=== PATIENT | male | born 1940 | race Caucasian/White ===

== ENCOUNTER → 2016-10-07 | Outpatient (CLI) | payer MEDICARE ==
[~2016-10-07] MED LIST: ASPI81 CHEW; LEVO88TA2 PO; SIMV80TA PO; VITA500015 PO; XANA0.5T PO
--- NOTE | 2016-10-07 10:39 | RADRPT ---
EXAM DATE/TIME: 10/07/2016 09:56 [place] COMPARISON: BA SWALLOW W/SPEECH PATHOLOGY, January 01, 2016, 0:00. INDICATIONS : Dyspahgia. FLUORO TIME: 2.9 minutes IMAGE COUNT: 2 CONTRAST: Dose as prescribed by speech pathologist. MEDICAL HISTORY : cancer tongue 14 years ago. Feeding tube.Dysphagia, Malignant neoplasm o f colon, HLD, Hypothyroidism, Kyphosis, PVC's, SURGICAL HISTORY : Colonoscopy, Bilateral inguinal hernia repair ENCOUNTER: Initial ACUITY: 1 day PAIN SCORE: 0/10 LOCATION: Esophagus. FINDINGS: A modified barium swallow was performed with speech pathology. Patient was given a variety of liquids to swallow. There is moderate deformity of the neck with the pyriforms directed horizontally that results in mode rate laryngeal penetration. For a full detailed report, see report by the speech pathologist. CONCLUSION: Moderate laryngeal penetration as described above. Maximiliano Medina MD FACR on October 07, 2016 at 10:33 Board Certified Radiologist. This report was verified electronically.
== END ==
LOC: HRAD 09:46
PROVIDERS: ATTEND Internal Medicine Gastroenterology
DX: R13.10 Dysphagia, unspecified (principal)
CPT/HCPCS: 74230; 92611; G8996; G8997; G8998

== ENCOUNTER 2017-05-03 13:31 | Emergency (ER) | payer MEDICARE ==
[~2017-05-03] VITALS: Ht 170.2 cm; Wt 70.0 kg
[2017-05-03 13:46] VITALS: BP 143/73; PULSE 91; RESP 16; TEMP 98.3; O2SAT 97
[2017-05-03] MEDS ORDERED: SIMV40TA PO (14:39)
[2017-05-03] MEDS ORDERED: ALPR0.5T3 PO (14:39)
[2017-05-03] MEDS ORDERED: CHOL5000 PO (14:39)
[2017-05-03] MEDS ORDERED: LEVO100T5 PO (14:39)
[2017-05-03] MEDS ORDERED: ASPI-516 CHEW (14:39)
[2017-05-03 14:48] LABS: AUTOMATED NEUTROPHIL # 2.6 TH/MM3 (1.8-7.7); EOSINOPHIL # 0.1 TH/MM3 (0-0.4); EOSINOPHIL % 1.8 % (0.0-4.0); HEMATOCRIT 38.1 % (39.0-51.0); HEMO FLAGS DIFF FINAL; LYMPH % 22.3 % (9.0-44.0); LYMPHOCYTE # 0.9 TH/MM3 (1.0-4.8); MEAN CELL VOLUME 88.8 FL (80.0-100.0); MEAN CORPUSCULAR HEMOGLOBIN 29.5 PG (27.0-34.0); MEAN CORPUSCULAR HGB CONC 33.3 % (32.0-36.0); MONO % 11.2 % (0.0-8.0); NEUT % 63.7 % (16.0-70.0); PLATELET COUNT 162 TH/MM3 (150-450); WHITE BLOOD COUNT 4.1 TH/MM3 (4.0-11.0)
--- NOTE | 2017-05-03 14:55 | PD ---
HPI Chief Complaint: ENT Complaint Time Seen by Provider: 14:40 Travel History International Travel<30 days: No Contact w/Intl Traveler<30days: No Traveled to known affect area: No History of Present Illness HPI 76 year old male here for evaluation of spitting up blood since this morning. He states after clearing his throat he spit up some blood-tinged fluid. 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 He also received tumor resection and radiation which resulted in dysphagia. Patient has PEG tube which he receives all feedings. He denies sore throat, change in voice, weight loss, fatigue or dizziness. PFSH Past Medical History Narrative Medical Significant for squamous cell carcinoma of the tongue and hypothyroidism. 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) Cardiovascular Problems: No Diabetes: No Endocrine: Yes Gastrointestinal Disorders: Yes (LOSING WEIGHT SWALLOWING PROBLEMS) Genitourinary: No Hepatitis: No Hiatal Hernia: No Immune Disorder: No Musculoskeletal: Yes (ARTHRITIS WORSE IN HANDS) Neurologic: No Psychiatric: No Reproductive: No Respiratory: No Thyroid Disease: Yes Influenza Vaccination: Yes Past Surgical History Abdominal Surgery: Yes (HEMA INGUINAL HERNIA X2) AICD: No Body Medical Devices: NONE Cardiac Surgery: No Ear Surgery: No Endocrine Surgery: No Eye Surgery: Yes (LEFT CATARACT EXTRACTION WITH LENS IMPLANT ) Genitourinary Surgery: No Gynecologic Surgery: No Joint Replacement: No Oral Surgery: Yes (right radical neck dissection due to squamous cell carcinoma ) Pacemaker: No Thoracic Surgery: No Other Surgery: Yes (SKIN CA AT BASE OF TONGUE - 2000) Social History Alcohol Use: No Tobacco Use: No Substance Use: No Allergies-Medications (Allergen,Severity, Reaction): Coded Allergies: No Known Allergies (Verified Adverse Reaction, Unknown, 05/03/17) Reported Meds & Prescriptions Reported Meds & Active Scripts Active Reported Simvastatin 40 Mg Tab 40 Mg PO HS Levothyroxine (Levothyroxine Sodium) 100 Mcg Tab 100 Mcg PO DAILY Vitamin D3 (Cholecalciferol) 5,000 Unit Cap 5,000 Units PO DAILY Aspirin 81 Mg Chew 81 Mg CHEW DAILY Alprazolam 0.5 Mg Tab 0.5 Mg PO HS Physical Exam Narrative GENERAL: Alert, well-appearing elderly male. SKIN: Focused skin assessment is Warm and dry. HEAD: Normocephalic. EYES: No scleral icterus. No injection or drainage. MOUTH: Small amount of blood tinged sputum noticed in the posterior oropharynx. NECK: Supple, trachea midline. No JVD or lymphadenopathy. CARDIOVASCULAR: Regular rate and rhythm without murmurs, gallops, or rubs. RESPIRATORY: Breath sounds equal bilaterally. No accessory muscle use. GASTROINTESTINAL: Abdomen soft, non-tender, nondistended. Data Data Last Documented VS Vital Signs Date Time Temp Pulse Resp B/P (MAP) Pulse Ox O2 Delivery O2 Flow Rate FiO2 05/03/17 13:46 98.3 91 16 143/73 (96) 97 Orders Orders Complete Blood Count With Diff (05/03/17 14:23) Labs Laboratory Tests Test 05/03/17 14:30 White Blood Count 4.1 TH/MM3 Red Blood Count 4.30 MIL/MM3 Hemoglobin 12.7 GM/DL Hematocrit 38.1 % Mean Corpuscular Volume 88.8 FL Mean Corpuscular Hemoglobin 29.5 PG Mean Corpuscular Hemoglobin Concent 33.3 % Red Cell Distribution Width 12.0 % Platelet Count 162 TH/MM3 Mean Platelet Volume 10.8 FL Neutrophils (%) (Auto) 63.7 % Lymphocytes (%) (Auto) 22.3 % Monocytes (%) (Auto) 11.2 % Eosinophils (%) (Auto) 1.8 % Basophils (%) (Auto) 1.0 % Neutrophils # (Auto) 2.6 TH/MM3 Lymphocytes # (Auto) 0.9 TH/MM3 Monocytes # (Auto) 0.5 TH/MM3 Eosinophils # (Auto) 0.1 TH/MM3 Basophils # (Auto) 0.0 TH/MM3 CBC Comment DIFF FINAL Differential Comment MDM Medical Decision Making Medical Screen Exam Complete: Yes Emergency Medical Condition: Yes Interpretation(s) CBC: Hemoglobin 12.7 Differential Diagnosis Bleeding from a neoplastic lesion of the esophagus, upper GI bleed, Narrative Course 76-year-old male with history of squamous cell carcinoma the tongue here for evaluation after he spit up some blood tinged sputum this morning. His exam is reassuring. He brought in a sample of what he was spitting up this morning is a very lightly blood-tinged clear sputum. Patient has follow-up appointment with his ENT doctor tomorrow morning. My attending physician also spoke with his PCP. Patient's blood work was reviewed his hemoglobin is 12.7. He is stable and ready for discharge. He has family agreed to plan Diagnosis Primary Impression: Blood-tinged sputum Referrals: Eloy Silverio MD Additional Instructions: Follow-up with your ENT physician tomorrow. If you developed new or worsening symptoms prior return to emergency department Disposition: 01 DISCHARGE HOME Condition: Stable Jaquelin Luz May 03, 2017 14:55
== END 2017-05-03 16:08 | disposition home or self-care (01) ==
LOC: PHEFT 13:31
DX: R04.2 Hemoptysis (principal); Z85.810 Personal history of malignant neoplasm of tongue
CPT/HCPCS: 85025; 99283

== ENCOUNTER 2017-05-12 17:24 | Emergency (ER) | payer MEDICARE ==
[~2017-05-12] VITALS: Ht 170.2 cm; Wt 70.0 kg
[~2017-05-12 17:24] MED LIST changes: +ALPR0.5T3 PO; +ASPI-516 CHEW; -ASPI81 CHEW; +CHOL5000 PO; +LEVO100T5 PO; -LEVO88TA2 PO; +SIMV40TA PO; -SIMV80TA PO; -VITA500015 PO; -XANA0.5T PO
[2017-05-12 17:37] VITALS: BP 135/64; PULSE 74; RESP 16; TEMP 98; O2SAT 100
[2017-05-12] MEDS ORDERED: SILVER NITR/POTASSIUM NITRATE APPLICATORS TOPICAL ONE (18:15)
--- NOTE | 2017-05-12 18:17 | PD ---
HPI Chief Complaint: Skin Problem Time Seen by Provider: 18:04 Travel History International Travel<30 days: No Contact w/Intl Traveler<30days: No Traveled to known affect area: No History of Present Illness HPI 77-year-old male who underwent an ED&C of left anterior scalp [facility], here for evaluation of bleeding. The procedure was performed at around noon. He has noticed that the bandages soaked with blood and there is a small amount of blood dripping down his face. He was on aspirin 81 mg daily, however he has not taken it today or yesterday. No other antiplatelets or anticoagulants. States he feels well otherwise. 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) Cardiovascular Problems: No Diabetes: No Endocrine: Yes Gastrointestinal Disorders: Yes (LOSING WEIGHT SWALLOWING PROBLEMS) Genitourinary: No Hepatitis: No Hiatal Hernia: No Hypertension: No Immune Disorder: No Medical other: No Musculoskeletal: Yes (ARTHRITIS WORSE IN HANDS) Neurologic: No Psychiatric: No Reproductive: No Respiratory: No Thyroid Disease: Yes Past Surgical History Abdominal Surgery: Yes (HEMA INGUINAL HERNIA X2) AICD: No Body Medical Devices: NONE Cardiac Surgery: No Ear Surgery: No Endocrine Surgery: No Eye Surgery: Yes (LEFT CATARACT EXTRACTION WITH LENS IMPLANT ) Genitourinary Surgery: No Gynecologic Surgery: No Joint Replacement: No Neurologic Surgery: No Oral Surgery: Yes (right radical neck dissection due to squamous cell carcinoma ) Pacemaker: No Thoracic Surgery: No Other Surgery: Yes (SKIN CA AT BASE OF TONGUE - 2000) Social History Alcohol Use: No Tobacco Use: No Substance Use: No Allergies-Medications (Allergen,Severity, Reaction): Coded Allergies: No Known Allergies (Verified Adverse Reaction, Unknown, 05/12/17) Reported Meds & Prescriptions Reported Meds & Active Scripts Active Reported Simvastatin 40 Mg Tab 40 Mg PO HS Levothyroxine (Levothyroxine Sodium) 100 Mcg Tab 100 Mcg PO DAILY Vitamin D3 (Cholecalciferol) 5,000 Unit Cap 5,000 Units PO DAILY Aspirin 81 Mg Chew 81 Mg CHEW DAILY Alprazolam 0.5 Mg Tab 0.5 Mg PO HS Review of Systems Except as stated in HPI: all other systems reviewed are Neg Physical Exam Narrative GENERAL: Well-developed, well-nourished, comfortable, no apparent distress. SKIN: Circular proximally 1 cm x 1 cm lesion on left anterior scalp of moderate depth with mild venous oozing. CARDIOVASCULAR: Regular rate and rhythm. RESPIRATORY: No accessory muscle use. NEUROLOGICAL: Awake and alert. No obvious cranial nerve deficits. Motor grossly within normal limits. Normal speech. PSYCHIATRIC: Appropriate mood and affect; insight and judgment normal. Data Data Last Documented VS Vital Signs Date Time Temp Pulse Resp B/P (MAP) Pulse Ox O2 Delivery O2 Flow Rate FiO2 05/12/17 17:37 98.0 74 16 135/64 (87) 100 Orders Orders Silver Nitrate Applicators (Silver Nitra (05/12/17 18:15) MDM Medical Decision Making Medical Screen Exam Complete: Yes Emergency Medical Condition: Yes Differential Diagnosis Postoperative venous bleeding Narrative Course Patient has a 1 cm x 1 cm circular wound on his left anterior scalp where squamous cell carcinoma was [facility] at [facility]. There is mild venous oozing. Bleeding was controlled with 2 silver nitrate sticks. Sterile dressing applied. The patient has a follow-up appointment with the administrative hearing officer tomorrow. He is stable for discharge home with further follow-up with them. He was advised on when to return to the emergency department. He verbalizes understanding and agreement with plan. Procedures Procedure Narrative Wound care: 2 silver nitrate sticks were used to control the venous bleeding from left anterior scalp wound. Sterile dressing applied. Tolerated well. No complications. Diagnosis Primary Impression: Postoperative hemorrhage of skin following dermatologic procedure Referrals: [facility] 1 day Additional Instructions: Follow-up with your administrative hearing officer tomorrow as scheduled. Return to the emergency department for worsening symptoms or any other concerns. Disposition: 01 DISCHARGE HOME Condition: Stable Rommel Andino MD May 12, 2017 18:17
== END 2017-05-12 18:33 | disposition home or self-care (01) ==
LOC: PHED 17:24
DX: L76.21 Postprocedural hemorrhage of skin and subcutaneous tissue following a dermatologic procedure (principal)
CPT/HCPCS: 12001; 99283

== ENCOUNTER 2017-05-15 18:07 | Emergency (ER) | payer MEDICARE ==
[~2017-05-15] VITALS: Ht 170.2 cm; Wt 67.0 kg
[2017-05-15 18:09] VITALS: BP 150/72; PULSE 90; RESP 16; TEMP 99; O2SAT 98
--- NOTE | 2017-05-15 18:55 | PD ---
HPI Chief Complaint: Blood Bank Laboratory Technologist Problem Time Seen by Provider: 18:55 Travel History International Travel<30 days: No Contact w/Intl Traveler<30days: No Traveled to known affect area: No History of Present Illness HPI 77-year-old male came to the emergency room with history of possible blood coming out of his G-tube. Patient has had this for 17 months. Says it has been functioning good but soft and non-when he put his feet in and then flushed he thought he saw some blood. He was not sure. He has appointment with his GI specialist Wednesday morning that he just wanted to get this checked out. Patient has history of esophageal cancer 18 years ago. He was seen in the emergency room 3 weeks ago for hemoptysis. Patient says although symptoms have resolved. Vital signs are stable. No history of pain. PFSH Past Medical History Narrative Medical List of his past medical, surgical, social and family history is reviewed from the nursing note. 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) Cardiovascular Problems: No Diabetes: No Endocrine: Yes Gastrointestinal Disorders: Yes (LOSING WEIGHT SWALLOWING PROBLEMS) Genitourinary: No Hepatitis: No Hiatal Hernia: No Hypertension: No Immune Disorder: No Musculoskeletal: Yes (ARTHRITIS WORSE IN HANDS) Neurologic: No Psychiatric: No Reproductive: No Respiratory: No Thyroid Disease: Yes Past Surgical History Abdominal Surgery: Yes (HEMA INGUINAL HERNIA X2) AICD: No Body Medical Devices: NONE Cardiac Surgery: No Ear Surgery: No Endocrine Surgery: No Eye Surgery: Yes (LEFT CATARACT EXTRACTION WITH LENS IMPLANT ) Genitourinary Surgery: No Gynecologic Surgery: No Joint Replacement: No Neurologic Surgery: No Oral Surgery: Yes (right radical neck dissection due to squamous cell carcinoma ) Pacemaker: No Thoracic Surgery: No Other Surgery: Yes (SKIN CA AT BASE OF TONGUE - 2000) Social History Alcohol Use: No Tobacco Use: No Substance Use: No Allergies-Medications (Allergen,Severity, Reaction): Coded Allergies: No Known Allergies (Verified Adverse Reaction, Unknown, 05/12/17) Comments No known drug allergies. Reported Meds & Prescriptions Reported Meds & Active Scripts Active Omeprazole 20 Mg Tab 20 Mg PO DAILY Reported Simvastatin 40 Mg Tab 40 Mg PO HS Levothyroxine (Levothyroxine Sodium) 100 Mcg Tab 100 Mcg PO DAILY Vitamin D3 (Cholecalciferol) 5,000 Unit Cap 5,000 Units PO DAILY Aspirin 81 Mg Chew 81 Mg CHEW DAILY Alprazolam 0.5 Mg Tab 0.5 Mg PO HS Narrative Medication List of his home medications reviewed from the nursing note. Review of Systems Except as stated in HPI: all other systems reviewed are Neg Physical Exam Narrative GENERAL: Awake, alert, no obvious distress SKIN: Focused skin assessment warm/dry. HEAD: Atraumatic. Normocephalic. EYES: Pupils equal and round. No scleral icterus. No injection or drainage. ENT: No nasal bleeding or discharge. Mucous membranes pink and moist. NECK: Trachea midline. No JVD. CARDIOVASCULAR: Regular rate and rhythm. No murmur appreciated. RESPIRATORY: No accessory muscle use. Clear to auscultation. Breath sounds equal bilaterally. GASTROINTESTINAL: Abdomen soft, non-tender, nondistended. Hepatic and splenic margins not palpable. G-tube stoma. G-tube looks old. The stoma site itself looks good. MUSCULOSKELETAL: No obvious deformities. No clubbing. No cyanosis. No edema. NEUROLOGICAL: Awake and alert. No obvious cranial nerve deficits. Motor grossly within normal limits. Normal speech. PSYCHIATRIC: Appropriate mood and affect; insight and judgment normal. Data Data Last Documented VS Vital Signs Date Time Temp Pulse Resp B/P (MAP) Pulse Ox O2 Delivery O2 Flow Rate FiO2 05/15/17 19:44 05/15/17 18:09 99.0 90 16 98 Orders Orders Ed Discharge Order (05/15/17 19:35) Pantoprazole (Protonix) (05/15/17 19:45) MDM Medical Decision Making Medical Screen Exam Complete: Yes Emergency Medical Condition: Yes Medical Record Reviewed: Yes Differential Diagnosis G-tube malfunction Narrative Course 7:38 PM the nurse flushed the G-tube with normal saline and did not notice any blood in the aspirate. I'm comfortable discharging the patient home. I'll give him a dose of Protonix here and omeprazole prescription to go home with. He needs to follow up with his GI specialist Wednesday morning as per the appointment. Procedures EKG Prior to Arrival: No Diagnosis Primary Impression: Malfunction of gastrostomy tube Additional Instructions: Please follow-up with your GI specialist as per your appointment Wednesday. Take the medication as per the prescription direction. Med/Other Pt SpecificInfo: Prescription(s) given Scripts Omeprazole (Omeprazole) 20 Mg Tab 20 MG PO DAILY, #30 TAB 0 Refills Prov: Ashok Rios MD 05/15/17 Disposition: 01 DISCHARGE HOME Condition: Stable Ashok Rios MD May 15, 2017 18:55
[2017-05-15] MEDS ORDERED: OMEP20TA93 PO (19:40)
[2017-05-15] MEDS ORDERED: PANTOPRAZOLE SOD 20 MG DELAYED RELEASE TAB PO ONE (19:45)
== END 2017-05-15 19:51 | disposition home or self-care (01) ==
LOC: NEPD 18:07
DX: K94.23 Gastrostomy malfunction (principal); Z85.810 Personal history of malignant neoplasm of tongue
CPT/HCPCS: 99283

== ENCOUNTER 2018-03-23 05:30 | Inpatient (IN) ==
--- NOTE | 2018-03-22 21:11 | MH ---
cc: Stone Abreu MD DATE OF ADMISSION: 03/23/2018 ADMITTING DIAGNOSIS: End-stage osteoarthritis, right hip. HISTORY OF PRESENT ILLNESS: He has had this pain for about 10 years, but mostly referred pain in the right knee. There is nothing wrong with his right knee, but he has severe osteoarthritis of the right hip and indeed, we sent him for fluoroscopically-guided injection for diagnostic and therapeutic purposes. That was done last year and it almost completely relieved the knee pain and also the hip pain and lasted for a while. Repeat injections; however, did not help much. He is now opting for total hip replacement arthroplasty. The procedure itself and the potential risks, hazards, complications and expected results have all been discussed with him in detail, particularly in reference to anesthesia because of his spinal deformity as well as scarring from previous glossectomy and radical neck dissection. PERSONAL/SOCIAL HISTORY: Nonsmoker, nondrinker. 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 PAST MEDICAL HISTORY: Squamous cell carcinoma of the tongue, necessitating lymph node dissection and radiation, which ended up with significant scarring and deformities and now he has a feeding tube. He says he can swallow liquids quite easily and small pills, but nothing that is thick. History of hypothyroidism. Hernia repairs in 1994 and 2002. MEDICATIONS: 1. Aspirin 81 mg. 2. Levothyroxine 100 mcg. 3. Vitamin D3. ALLERGIES: NONE. PHYSICAL EXAMINATION: GENERAL: Examination reveals an average height, average build white male who has thoracic kyphosis and cervical lordosis with his head significantly in front of his chest. Range of motion is severely restricted in the cervical, thoracic spine. No radiculopathy in upper extremities. SKIN: He has a superficial laceration that he sustained on the outer aspect of the left elbow a few days ago. That has been Steri-Stripped and there is no evidence of any infection or drainage. HEENT: Pupils reactive to light. HEART: Regular rate and rhythm. No murmurs. LUNGS: Clear to auscultation. ABDOMEN: Reveals no swelling. There is a gastrostomy tube in the epigastric area, there is good skin condition over the pelvis, right hip and right inguinal area. EXTREMITIES: The pedal pulses are palpable in the right foot. He moves his right foot well. He has severe pain on any range of motion of the right hip, particularly flexion and internal rotation. DIAGNOSTIC DATA: X-rays revealed loss of joint space, spurring, sclerosis, cystic changes and some bone loss from the femoral head. Templating x-rays have been done. PLAN: We chose the anterior approach because of the spinal deformity and lack of mobility in the spine. Anesthesia has been discussed with him and also with anesthesiologist and they will decide between spinal and possible fiberoptic intubation. Informed consent has been obtained. Details and informed consent documented on the office record. MD ADALID Robins/kandy , 07:24 PM , 07:35 PM MTDD
[2018-03-23] MEDS ORDERED: Sodium Chlor 0.9% Inj 500 ML IV.CONT ONE (06:00)
[2018-03-23] MEDS ORDERED: Chlorhexidine Gluconate 2% 1 Pack (2 Cloths) TOPICAL ONE (06:00)
[2018-03-23] MEDS ORDERED: Metoprolol Tartrate 25 MG Tablet PO ONE (06:00)
[2018-03-23] MEDS ORDERED: Sodium Chlor 0.9% Inj 60 ML, Bupivacaine Liposo PF 1.3% Inj 20 ML P-ARTICULR SCH ×2 (06:15)
[2018-03-23] MEDS ORDERED: TRANEXAMIC ACID IV.SIG SCH ×2 (07:00→10:00)
[2018-03-23] MEDS ORDERED: SODIUM CHLOR 0.9% IV.SIG SCH ×2 (07:00→10:00)
[2018-03-23] MEDS ORDERED: Tetracaine PF 1% Inj 20 MG/2 ML Ampul ONE (07:03)
[2018-03-23] MEDS ORDERED: Bupivacaine/Dextrose 0.75% Inj 2 ML Ampul ONE (07:03)
[2018-03-23] MEDS ORDERED: EPINEPHrine PF/SF Inj 1 MG/ML Ampul I-OCULAR ONE (07:03)
[2018-03-23] MEDS ORDERED: Lidocaine 1% Inj 30 ML Vial ONE (07:13)
[2018-03-23] MEDS ORDERED: Phenylephrine/NS 1000 MCG/10ML Syringe IV.PUSH ONE (07:14)
[2018-03-23] MEDS ORDERED: Normosol-R pH 7.4 Inj 1,000 ML IV.CONT ONE (07:14)
[2018-03-23] MEDS: Vancomycin Inj 1,000 MG in Sodium Chlor 0.9% Inj 250 ML IV.SIG SCH ×2 (07:25→20:15)
[2018-03-23] MEDS: ceFAZolin 2 GM Premix Inj 2 GM/50 ML PIGGYBACK IV.SIG SCH ×3 (07:25→19:10)
[2018-03-23] MEDS ORDERED: Albumin Human 5% Inj 250 ML IV.SIG ONE ×3 (09:55→19:00)
[2018-03-23] MEDS ORDERED: Tranexamic Acid Inj 1,000 MG/10 ML Ampul ONE ×2 (10:01)
[2018-03-23] MEDS ORDERED: Bisacodyl 10 MG Supp RECTAL PRN (10:51)
[2018-03-23] MEDS ORDERED: Morphine Inj 4 MG/ML Vial IV.PUSH PRN (10:51)
[2018-03-23] MEDS ORDERED: Post-op Orders (for Pharmacy) OTHER STA (10:51)
[2018-03-23] MEDS ORDERED: Aluminum/Magnesium/Simethacone Susp 30 ML UDC PO PRN (10:51)
--- NOTE | 2018-03-23 11:25 | XR ---
EXAM DATE: 03/23/2018 12:00 AM EDT AGE/SEX: 77 years / Male INDICATIONS: Right total hip. CLINICAL DATA: This is the patient's initial encounter. Patient reports that signs and symptoms have been present for 1 day and indicates a pain score of Nonresponsive. MEDICAL/SURGICAL HISTORY: None. None. COMPARISON: No prior exams available for comparison. FINDINGS: There is a right hip prosthesis in place. There is good position of the right hip prosthesis. The bon y structures are grossly intact. CONCLUSION: Good position and alignment of the right hip prosthesis. Electronically signed by: Michel Thompson MD 03/23/2018 11:24 AM EDT
--- NOTE | 2018-03-23 12:15 | XR ---
EXAM DATE: 03/23/2018 12:00 AM EDT AGE/SEX: 77 years / Male INDICATIONS: Post op right hip surgery CLINICAL DATA: This is the patient's initial encounter. Patient reports that signs and symptoms have been present for 1 day and indicates a pain score of 0/10. MEDICAL/SURGICAL HISTORY: None. None. COMPARISON: [place], [place] INJECTION - HIP, RIGHT, 02/03/2017. . FINDINGS: Right hip arthroplasty in place. Arthroplasty components are in anatomic alignment. No acute bony fra cture. CONCLUSION: 1. Right hip arthroplasty in anatomic alignment without acute fracture. Electronically signed by: Stan Andersen MD 03/23/2018 12:13 PM EDT
[2018-03-23] MEDS: Sod Chloride 0.9% Inj 1,000 ML IV.CONT SCH (13:18)
[2018-03-23] MEDS ORDERED: Phenylephrine Inj 40 MG in Dextrose 5% in Water Inj 496 ML IV.CONT PRN ×2 (14:12)
[2018-03-23] MEDS ORDERED: *morphine SULFATE 4 MG/ML PERIprocedure ONLY ONE (14:29)
[2018-03-23 18:13] LABS: Hematocrit 30.6 % (39.0-51.0); Hemoglobin 10.6 gm/dL (13.0-17.0)
[2018-03-23] MEDS ORDERED: Zolpidem Tartrate 5 MG Tablet PO PRN (21:00)
[2018-03-24] MEDS: ceFAZolin 2 GM Premix Inj 2 GM/50 ML PIGGYBACK IV.SIG SCH ×2 (03:00→03:42)
[2018-03-24] MEDS: Sod Chloride 0.9% Inj 1,000 ML IV.CONT SCH ×3 (03:42→16:50)
[2018-03-24] MEDS: Senna/Docusate Sodium 8.6/50 MG Tablet PO SCH ×3 (03:42→20:52)
[2018-03-24] MEDS: Levothyroxine 100 MCG Tablet PO SCH (06:15)
[2018-03-24] MEDS: ALPRAZolam 0.25 MG Tablet PO SCH ×2 (07:11→20:52)
[2018-03-24 07:14] LABS: Hematocrit 24.4 % (39.0-51.0); Hemoglobin 8.4 gm/dL (13.0-17.0)
[2018-03-24 07:42] LABS: Anion Gap 7 meq/L (5-15); Blood Urea Nitrogen 9 mg/dL (7-18); Calcium 7.1 mg/dL (8.5-10.1); Carbon Dioxide 27.5 meq/L (21.0-32.0); Chloride 107 meq/L (98-107); Glomerular Filtration Rate Greater Than 89 mL/min (>89); Glucose,Random 92 mg/dL (74-106); Sodium 141 meq/L (136-145)
--- NOTE | 2018-03-24 07:48 | P.PNOP ---
Subjective Interval history: BP coming up, feeling OK. some pain right hip Physical Exam Vital signs: Vital Signs 03/23/18 11:00 03/23/18 11:15 03/23/18 11:30 Temperature Pulse Rate 76 75 76 Respiratory Rate 17 17 15 Blood Pressure 101/58 L 94/51 L 86/51 L Pulse Oximetry 99 99 99 03/23/18 11:45 03/23/18 12:15 03/23/18 12:24 Temperature 97.6 F Pulse Rate 80 76 80 Respiratory Rate 17 17 15 Blood Pressure 91/52 L 89/52 L 80/50 L Pulse Oximetry 99 99 03/23/18 12:30 03/23/18 12:45 03/23/18 12:46 Temperature Pulse Rate 79 79 82 Respiratory Rate 16 16 16 Blood Pressure 93/53 L 71/43 L 75/50 L Pulse Oximetry 100 100 100 03/23/18 12:48 03/23/18 13:00 03/23/18 13:15 Temperature Pulse Rate 75 73 76 Respiratory Rate 16 16 16 Blood Pressure 65/41 L 83/53 L 121/59 L Pulse Oximetry 03/23/18 13:45 03/23/18 14:15 03/23/18 14:45 Temperature Pulse Rate 77 76 76 Respiratory Rate 16 15 16 Blood Pressure 121/66 128/71 94/55 L Pulse Oximetry 100 100 100 03/23/18 15:15 03/23/18 15:30 03/23/18 15:45 Temperature Pulse Rate 74 73 76 Respiratory Rate 15 16 15 Blood Pressure 93/53 L 103/55 L 106/69 Pulse Oximetry 99 99 03/23/18 16:00 03/23/18 16:15 03/23/18 16:45 Temperature Pulse Rate 76 74 104 H Respiratory Rate 15 17 17 Blood Pressure 116/60 117/61 119/55 L Pulse Oximetry 99 99 100 03/23/18 17:00 03/23/18 17:15 03/23/18 18:00 Temperature 98.3 F Pulse Rate 76 78 102 H Respiratory Rate 17 17 17 Blood Pressure 103/58 L 92/53 L 96/52 L Pulse Oximetry 100 100 99 03/23/18 19:00 03/23/18 19:15 03/23/18 19:30 Temperature 97.6 F Pulse Rate 80 81 82 Respiratory Rate 17 19 19 Blood Pressure 90/55 L 93/50 L 82/45 L Pulse Oximetry 99 97 98 03/23/18 19:45 03/23/18 20:00 03/23/18 20:15 Temperature 97.8 F Pulse Rate 80 84 81 Respiratory Rate 18 22 21 Blood Pressure 93/55 L 99/54 L 91/50 L Pulse Oximetry 99 100 99 03/23/18 22:00 03/24/18 00:00 03/24/18 04:00 Temperature 98.1 F 98.3 F 98 F Pulse Rate 86 85 76 Respiratory Rate 18 18 18 Blood Pressure 94/53 L 93/49 L 94/51 L Pulse Oximetry 95 95 97 Intake & Output 03/23/18 03/24/18 03/24/18 18:59 06:59 18:59 Intake Total 1900 / 1900 1050 / 1050 50 / 50 Output Total 700 / 700 300 / 300 200 / 200 Balance 1200 / 1200 750 / 750 -150 / -150 Weight 66.2 kg 79.1 kg Intake: IV 350 / 350 1050 / 1050 NS Inj 1,000 ML @ 100 mls/hr IV 1000 / 1000 .CONT .Q10H AMOL Rx#:[id number] Vancomycin Inj 1,000 MG In NS 250 / 250 Inj 250 ML @ 250 mls/hr IV.SIG MAT REPAIRER AMOL Rx#:[id number] Ancef 2 GM Premix Inj 2 gm In 100 / 100 50 / 50 50 ml @ 100 mls/hr IV.SIG Q6H AMOL Rx#:[id number] Oral 50 / 50 Anesthesia Amount 1550 / 1550 Output: Urine 200 / 200 Estimated Blood Loss 700 / 700 Urine Amount (Catheter) 300 / 300 250 300 / 300 Other: Date of Last Bowel Movement 03/22/18 Narrative: A,A,andO.Not in distress. dressings dry, moves toes well. In bed - Urinary Catheter Management 250 Cath placed during this visit: no Results - Labs CBC & Chem 7: 03/24/18 05:22 03/24/18 05:22 Laboratory Results - last 24 hr 03/23/18 03/24/18 18:02 05:22 Hgb 10.6 L 8.4 L D Hct 30.6 L 24.4 L - Imaging Impressions Hip X-Ray 03/23/18 00:00 CONCLUSION: 1. Right hip arthroplasty in anatomic alignment without acute fracture. Hip X-Ray 03/23/18 00:00 CONCLUSION: Good position and alignment of the right hip prosthesis. Assessment and Plan - Ortho Post Op Day # 1 - Assessment and Plan Hypotension due to spinal and some blood loss. Hb Hct today OK. No need to transfuse. DC wednesday with [facility]
[2018-03-24] MEDS: Vancomycin Inj 1,000 MG in Sodium Chlor 0.9% Inj 250 ML IV.SIG SCH ×2 (08:00→08:40)
[2018-03-24 08:02] LABS: Total Protein 4.9 g/dL (6.4-8.2)
[2018-03-24] MEDS: Rivaroxaban 10 MG Tablet PO SCH (10:18)
--- NOTE | 2018-03-24 11:06 | P.CONIM ---
History of Present Illness Requesting Physician: Stone Abreu Reason for Consult: Medical management status post total hip replacement Primary Care Provider: Jagruti Oro MD History of Present Illness: This is a 77-year-old male patient with past medical history which includes tongue cancer (feeding via PEG tube), hyperlipidemia and hypothyroidism. Patient is status post right total hip with Dr. Abreu 03/23/2018. We have been consulted to assist in medical management. Patient endorses moderate right postop hip pain. Patient has also had hypotension postoperatively. Patient reports feeling well, was able to ambulate in the liu. Patient denies feeling lightheaded/dizzy. Patient offers no other medical complaints at this time denies nausea vomiting diarrhea constipation shortness of breath or chest pain. PMH: tongue cancer (feeding via PEG tube), hyperlipidemia and hypothyroidism PSxH: Colonoscopy, EGD, bilateral inguinal hernia repairs, PEG tube placement, neck surgery FMH: Father had congestive heart failure Mother had cancer Social history: Patient is retired History of EtOH abuse quit drinking 40+ years ago Former tobacco use Review of Systems All other systems reviewed negative except as stated in HPI PMFSH - History History Provided By: Patient - Medical History Medical History: Medical History (Last Reviewed 03/26/18 @ 09:15 by Wanda Spears) Arthritis Full dentures H. 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 - Tobacco History Second Hand Smoke Exposure: No Smoking Status: Never smoker - Alcohol History How Often Do You Have a Drink Containing Alcohol: Never - Substance Use History Substance History: No History of Abuse - Travel History Recent Travel in the [place] Within the Last 8 Weeks: No Recent Travel Out of the Country Within the Last 8 Weeks: No - Immunization History Tetanus Immunization: <5 Years Hx Influenza Vaccine This Season: Yes Medications and Allergies Allergies Allergy/AdvReac Type Severity Reaction Status Date / Time No Known Allergies Allergy Verified 03/23/18 05:50 Home Medications Medication Instructions Recorded Confirmed Type alprazolam 0.25 mg PO HS 03/14/18 03/23/18 History cholecalciferol (vitamin D3) 5,000 unit PO DAILY 03/14/18 03/23/18 History [Vitamin D3] levothyroxine 100 mcg PO DAILY 03/14/18 03/23/18 History lansoprazole 30 mg PO BID 03/23/18 03/23/18 History Active Medications: Active Medications Al Hydrox/Mg Hydrox/Simethicone (Mag-Al Plus Susp Liq) 30 ml PO Q6H PRN PRN Reason: INDIGESTION Al Hydroxide/Mg Hydroxide (Milk Of Magnesia Liq) 30 ml PO BID PRN PRN Reason: Mild Constipation Alprazolam (Xanax) 0.25 mg PO HS [facility] Last Admin: 03/24/18 07:11 Dose: Not Given Bisacodyl (Dulcolax Supp) 10 mg RECTAL DAILY PRN PRN Reason: SEVERE CONSITIPATION Diphenhydramine HCl (Benadryl Inj) 25 mg IV.PUSH Q6H PRN PRN Reason: ITCHING Ferrous Sulfate (Ferrous Sulfate Liq) 15 mg PO DAILY [facility] Cefazolin Sodium/Dextrose (Ancef 2 Gm Premix Inj) 2 gm in 50 mls @ 100 mls/hr IV.SIG IS ANALYST [facility] Stop: 03/27/18 06:59 Last Infusion: 03/24/18 04:12 Dose: Infused Vancomycin HCl 1,000 mg/ (Sodium Chloride) 250 mls @ 250 mls/hr IV.SIG IS ANALYST [facility] Stop: 03/26/18 06:01 Last Infusion: 03/24/18 09:40 Dose: Infused Acetaminophen (Ofirmev Inj) 1,000 mg in 100 mls @ 400 mls/hr IV.SIG Q12HR [facility] Stop: 03/24/18 23:59 Last Infusion: 03/24/18 08:52 Dose: Infused Phenylephrine HCl 40 mg/ (Dextrose) 500 mls @ 30 mls/hr IV.CONT TITRATE PRN; Protocol PRN Reason: Per Protocol Sodium Chloride (Ns Inj) 1,000 mls @ 84 mls/hr IV.CONT .[id number] [facility] Lactulose (Lactulose Liq) 30 ml PO DAILY PRN PRN Reason: SEVERE CONSITIPATION Levothyroxine Sodium (Synthroid) 100 mcg PO DAILY@0600 [facility] Last Admin: 03/24/18 06:15 Dose: 100 mcg Morphine Sulfate (Morphine Inj) 4 mg IV.PUSH Q3H PRN PRN Reason: BREAKTHROUGH PAIN Ondansetron HCl (Zofran Inj) 4 mg IV.PUSH Q6H PRN PRN Reason: NAUSEA OR VOMITING Oxycodone HCl (Roxicodone Intensol Liq) 10 mg PO Q6H PRN PRN Reason: pain level 5-10 Rivaroxaban (Xarelto) 10 mg PO Q24H [facility] Last Admin: 03/24/18 10:18 Dose: Not Given Senna/Docusate Sodium (Kenia-Colace) 1 tab PO BID [facility] Last Admin: 03/24/18 10:18 Dose: Not Given Sennosides (Senokot) 17.2 mg PO BID PRN PRN Reason: Moderate Constipation Sodium Chloride (Ns Flush) 2 ml IV.FLUSH PRN PRN PRN Reason: FLUSH AFTER USING IV ACCESS Sodium Chloride (Ns Flush) 2 ml IV.FLUSH BID [facility] Last Admin: 03/24/18 10:17 Dose: 2 ml Tamsulosin HCl (Flomax) 0.4 mg PO BID [facility] Last Admin: 03/24/18 10:17 Dose: Not Given Terbutaline Sulfate (Brethine Inj) 1 mg SQ UNSCH PRN PRN Reason: For Extravasation Tramadol HCl (Ultram) 50 mg PO Q6H PRN PRN Reason: PAIN LESS THAN 5 ON SCALE Last Admin: 03/24/18 07:08 Dose: 50 mg Vitamin D (Vitamin D3) 5,000 unit PO DAILY [facility] Last Admin: 03/24/18 08:36 Dose: 5,000 unit Zolpidem Tartrate (Ambien) 5 mg PO HS PRN PRN Reason: INSOMNIA Exam Vital signs: Vital Signs 03/23/18 11:15 03/23/18 11:30 03/23/18 11:45 Temperature Pulse Rate 75 76 80 Respiratory Rate 17 15 17 Blood Pressure 94/51 L 86/51 L 91/52 L Pulse Oximetry 99 99 99 03/23/18 12:15 03/23/18 12:24 03/23/18 12:30 Temperature 97.6 F Pulse Rate 76 80 79 Respiratory Rate 17 15 16 Blood Pressure 89/52 L 80/50 L 93/53 L Pulse Oximetry 99 100 03/23/18 12:45 03/23/18 12:46 03/23/18 12:48 Temperature Pulse Rate 79 82 75 Respiratory Rate 16 16 16 Blood Pressure 71/43 L 75/50 L 65/41 L Pulse Oximetry 100 100 03/23/18 13:00 03/23/18 13:15 03/23/18 13:45 Temperature Pulse Rate 73 76 77 Respiratory Rate 16 16 16 Blood Pressure 83/53 L 121/59 L 121/66 Pulse Oximetry 100 03/23/18 14:15 03/23/18 14:45 03/23/18 15:15 Temperature Pulse Rate 76 76 74 Respiratory Rate 15 16 15 Blood Pressure 128/71 94/55 L 93/53 L Pulse Oximetry 100 100 03/23/18 15:30 03/23/18 15:45 03/23/18 16:00 Temperature Pulse Rate 73 76 76 Respiratory Rate 16 15 15 Blood Pressure 103/55 L 106/69 116/60 Pulse Oximetry 99 99 99 03/23/18 16:15 03/23/18 16:45 03/23/18 17:00 Temperature Pulse Rate 74 104 H 76 Respiratory Rate 17 17 17 Blood Pressure 117/61 119/55 L 103/58 L Pulse Oximetry 99 100 100 03/23/18 17:15 03/23/18 18:00 03/23/18 19:00 Temperature 98.3 F Pulse Rate 78 102 H 80 Respiratory Rate 17 17 17 Blood Pressure 92/53 L 96/52 L 90/55 L Pulse Oximetry 100 99 99 03/23/18 19:15 03/23/18 19:30 03/23/18 19:45 Temperature 97.6 F Pulse Rate 81 82 80 Respiratory Rate 19 19 18 Blood Pressure 93/50 L 82/45 L 93/55 L Pulse Oximetry 97 98 99 03/23/18 20:00 03/23/18 20:15 03/23/18 22:00 Temperature 97.8 F 98.1 F Pulse Rate 84 81 86 Respiratory Rate 22 21 18 Blood Pressure 99/54 L 91/50 L 94/53 L Pulse Oximetry 100 99 95 03/24/18 00:00 03/24/18 04:00 03/24/18 08:00 Temperature 98.3 F 98 F 97.7 F Pulse Rate 85 76 75 Respiratory Rate 18 18 17 Blood Pressure 93/49 L 94/51 L 96/55 L Pulse Oximetry 95 97 98 Intake & Output 03/23/18 03/24/18 03/24/18 18:59 06:59 18:59 Intake Total 1900 / 1900 1450 / 1450 1400 / 1400 Output Total 700 / 700 390 / 390 220 / 220 Balance 1200 / 1200 1060 / 1060 1180 / 1180 Weight 66.2 kg 79.1 kg Intake: IV 350 / 350 1450 / 1450 1350 / 1350 NS Inj 1,000 ML @ 100 mls/hr IV 1000 / 1000 1000 / 1000 .CONT .Q10H [facility]OL Rx#:[id number] Ofirmev Inj 1,000 mg In 100 ml 100 / 100 100 / 100 @ 400 mls/hr IV.SIG Q12HR [facility] Rx#:[id number] Vancomycin Inj 1,000 MG In NS 250 / 250 250 / 250 250 / 250 Inj 250 ML @ 250 mls/hr IV.SIG IS ANALYST [facility]OL Rx#:[id number] Ancef 2 GM Premix Inj 2 gm In 100 / 100 100 / 100 50 ml @ 100 mls/hr IV.SIG IS ANALYST [facility] Rx#:[id number] Oral 50 / 50 Anesthesia Amount 1550 / 1550 Output: Urine 200 / 200 Estimated Blood Loss 700 / 700 Urine Amount (Catheter) 300 / 300 250 300 / 300 Wound Drainage 90 / 90 20 / 20 # 1 Right Anterior Hip 90 / 90 Other: Date of Last Bowel Movement 03/22/18 03/23/18 Narrative: GENERAL: This is a thin, well-developed patient 77 year old male patient, in no apparent distress. CARDIOVASCULAR: Regular rate and rhythm RESPIRATORY: Clear to auscultation. Breath sounds equal bilaterally. GASTROINTESTINAL: Abdomen soft, non-tender, nondistended. Normal active bowel sounds. PEG tube in place MUSCULOSKELETAL: Extremities without clubbing, cyanosis, or edema. dressing dry and intact NEURO: Alert & Oriented x4 to person, place, time, situation. Moves all ext x4 Results - Labs CBC & Chem 7: 03/26/18 11:23 03/25/18 04:24 Labs: Laboratory Results - last 24 hr 03/23/18 03/24/18 03/24/18 18:02 05:22 05:22 Hgb 10.6 L 8.4 L D Hct 30.6 L 24.4 L Sodium 141 Potassium 4.0 Chloride 107 Carbon Dioxide 27.5 Anion Gap 7 BUN 9 Creatinine 0.59 L Estimated GFR Greater than 89 Random Glucose 92 Calcium 7.1 L* Prot Corrected Calcium 8.3 L Total Protein 4.9 L - Imaging Impressions Hip X-Ray 03/23/18 00:00 CONCLUSION: 1. Right hip arthroplasty in anatomic alignment without acute fracture. Hip X-Ray 03/23/18 00:00 CONCLUSION: Good position and alignment of the right hip prosthesis. Assessment and Plan - Plan This is a 77-year-old male patient with past medical history which includes tongue cancer (feeding via PEG tube), hyperlipidemia and hypothyroidism. Patient is status post right total hip with Dr. Abreu 03/23/2018. We have been consulted to assist in medical management. Patient endorses moderate right postop hip pain. Patient has also had hypotension postoperatively. Patient reports feeling well, was able to ambulate in the liu. Patient denies feeling lightheaded/dizzy. Patient offers no other medical complaints at this time denies nausea vomiting diarrhea constipation shortness of breath or chest pain. OA right hip S/P R total hip with Dr. Willard Post op management per orthopedic surgery Hypotension Possibly from spinal anesthesia Hgb 8.4 this AM, no need for transfusion per orthopedic surgery recheck CBC in AM IV fluids NS at 84ml/H Tongue cancer (feeding via PEG tube), Continue home tube feeding Hypothyroidism continue home levothyroxine DVT prophylaxis per orthopedic surgery - Attending Attestation The exam, history, and the medical decision-making described in the above note were completed with the assistance of the mid-level provider. I reviewed and agree with the findings presented. I attest that I had a [id number] encounter with the patient on the same day, and personally performed and documented my assessment and findings in the medical record. Patient examined. Assessment and plan formulated with Justyna Schaffer PA-C. I agree with the above.
--- NOTE | 2018-03-24 11:20 | P.DIET ---
Nutritional Evaluation Type of nutrition evaluation: initial Nutrition consult regarding: Tube Feeding Nutrition screening: [facility] [place] Subjective Subjective Comments: Pt has a feeding tube d/t hx of tongue CA. Objective - Diagnosis R BRINDA - Objective % IBW: 118 (IBW = 148#) Body Weight Used for Calculations: Actual (79.1 kg) Energy Needs - Lower Range (kCal/kg): 25 Energy Needs - Upper Range (kCal/kg): 30 Lower Limit kCal/kg (kCals): 1,978 Upper Limit kCal/kg (kCals): 2,373 Lower Limit Protein Factor (Grams per Kg): 1.0 Upper Limit Protein Factor (Grams per Kg): 1.5 Lower Protein Needs (Protein): 79 Upper Protein Needs (Protein): 119 Fluid Factor (ml/kg): 30 Estimated Fluid Needs (ml): 2,373 Dietitian Reviewed in Medical Record: Current diet, Curent medications, Intake & Output, Labs, Medical history Diet Order: Regular Objective Comments: Meds include synthroid, Vit D, feSO4 Assessment Assessment: Pt is at high nutrition risk 2' to his dependence on PEG feedings for his nutrition. He usually uses Nutrin 1.0 (2 cans) 480 ml bolus qid for a total of 1920 mls of formula per day. Our equivalent to this formula is Osmolite 1.0, and this will provide 2035 kcals, 85 gmsprotein and 1617 mls of free water. Please note that the pt is on synthroid and TF can not be given one hour before or after this med is given. Recommendations: Osmolite 1.0 480 ml bolus qid per pt's home routine. Dietitian to Monitor: Lab values, Intake & Output, Tube feeding tolerance, Weight change, Medical course
[2018-03-24] MEDS: Ferrous Sulfate Drops 15 MG/ML 50 ML Bottle PO SCH (17:05)
[2018-03-25 05:09] LABS: Baso % (Auto) 0.4 % (0.0-2.0); Eos % (Auto) 0.2 % (0.0-4.0); Hematocrit 23.9 % (39.0-51.0); Lymph # (Auto) 0.6 th/mm3 (1.0-4.8); Lymph % (Auto) 9.7 % (9.0-44.0); Mean Corpuscular HGB Conc 33.4 % (32.0-36.0); Mean Corpuscular Hemoglobin 30.6 pg (27.0-34.0); Mean Corpuscular Volume 91.6 fL (80.0-100.0); Mono # (Auto) 0.9 th/mm3 (0.0-0.9); Mono % (Auto) 14.3 % (0.0-8.0); Neut # (Auto) 4.8 th/mm3 (1.8-7.7); Neut % (Auto) 75.4 % (16.0-70.0); Platelet Count 90 th/mm3 (150-450); Red Blood Count 2.61 mil/mm3 (4.50-5.90); Red Cell Distribution Width 13.2 % (11.6-17.2); White Blood Count 6.4 th/mm3 (4.0-11.0)
[2018-03-25] MEDS: Levothyroxine 100 MCG Tablet PO SCH (05:28)
[2018-03-25] MEDS: Sod Chloride 0.9% Inj 1,000 ML IV.CONT SCH ×2 (05:29→10:52)
[2018-03-25 05:35] LABS: Anion Gap 6 meq/L (5-15); Blood Urea Nitrogen 13 mg/dL (7-18); Calcium 7.7 mg/dL (8.5-10.1); Carbon Dioxide 26.5 meq/L (21.0-32.0); Chloride 110 meq/L (98-107); Glomerular Filtration Rate Greater Than 89 mL/min (>89); Glucose,Random 114 mg/dL (74-106); Potassium 3.8 meq/L (3.5-5.1); Sodium 142 meq/L (136-145)
[2018-03-25 08:08] LABS: Platelet Morphology Normal (Normal)
[2018-03-25] MEDS: Senna/Docusate Sodium 8.6/50 MG Tablet PO SCH ×2 (09:09→20:30)
--- NOTE | 2018-03-25 09:09 | P.DCO ---
- Physical Therapy Hip: Total hip, Protocol: Right Right Lower Extremity Weight Bearing: Weight bearing as tolerated Right Lower Extremity Range of Motion: Active assistive ROM - Nursing Nursing: Other (sandip BURTON dressing, I will change it in office ) Dressing changes: Do not change dressing - Certification Need for Home Health services: I have seen patient Ricardo Heller on 03/25/18. My clinical findings support the need for the requested home health care services because: Need for Home Health Services: Limited ability to care for self Homebound Certification: I certify that my clinical findings support that this patient is homebound because: Homebound Certification: Unable to use public transportation
--- NOTE | 2018-03-25 09:14 | P.PNOP ---
Subjective Interval history: douign well Physical Exam Vital signs: Vital Signs 03/24/18 12:00 03/24/18 16:00 03/24/18 20:00 Temperature 97.6 F 98.2 F 98.0 F Pulse Rate 71 78 83 Respiratory Rate 18 17 16 Blood Pressure 90/51 L 113/55 L 92/54 L Pulse Oximetry 98 98 96 03/25/18 00:00 03/25/18 01:34 03/25/18 04:00 Temperature 98.4 F 97.9 F Pulse Rate 90 80 Respiratory Rate 18 18 18 Blood Pressure 101/54 L 98/56 L Pulse Oximetry 94 L 94 L 03/25/18 08:00 Temperature 97.8 F Pulse Rate 74 Respiratory Rate 16 Blood Pressure 90/51 L Pulse Oximetry 96 Intake & Output 03/24/18 03/25/18 03/25/18 18:59 06:59 18:59 Intake Total 1400 / 1400 1100 / 1100 Output Total 220 / 220 350 / 350 Balance 1180 / 1180 750 / 750 Weight 79.1 kg 78.8 kg Intake: IV 1350 / 1350 1100 / 1100 NS Inj 1,000 ML @ 84 mls/hr IV. 1000 / 1000 1000 / 1000 CONT .[id number] [facility]OL Rx#:[id number] Ofirmev Inj 1,000 mg In 100 ml 100 / 100 100 / 100 @ 400 mls/hr IV.SIG Q12HR [facility] Rx#:[id number] Vancomycin Inj 1,000 MG In NS 250 / 250 Inj 250 ML @ 250 mls/hr IV.SIG RECORDS CLERK AMOL Rx#:[id number] Oral 50 / 50 Output: Urine 200 / 200 Urine Amount (Catheter) 350 / 350 250 350 / 350 Wound Drainage 20 / 20 # 1 Right Anterior Hip 20 / 20 Other: # Voids 1 Date of Last Bowel Movement 03/23/18 03/23/18 Narrative: in bed. dressings dry. comfortable - Urinary Catheter Management 250 Cath placed during this visit: no Results - Labs CBC & Chem 7: 03/25/18 04:24 03/25/18 04:24 Laboratory Results - last 24 hr 03/25/18 03/25/18 04:24 04:24 WBC 6.4 RBC 2.61 L Hgb 8.0 L Hct 23.9 L MCV 91.6 MCH 30.6 MCHC 33.4 RDW 13.2 Plt Count 90 L MPV 12.0 H Prelim Diff (Auto) Slide review pending Neut % (Auto) 75.4 H Lymph % (Auto) 9.7 [place] % (Auto) 14.3 H Eos % (Auto) 0.2 Baso % (Auto) 0.4 Neut # (Auto) 4.8 Lymph # (Auto) 0.6 L [place] # (Auto) 0.9 Eos # (Auto) 0.0 Baso # (Auto) 0.0 WBC Differential . Diff Scan Auto diff confirmed Differential Comment . Platelet Estimate Low L Platelet Morphology Normal Sodium 142 Potassium 3.8 Chloride 110 H Carbon Dioxide 26.5 Anion Gap 6 BUN 13 Creatinine 0.56 L Estimated GFR Greater than 89 Random Glucose 114 H Calcium 7.7 L Assessment and Plan - Assessment and Plan Hypotension due to spinal and some blood loss. Hb Hct today OK. No need to transfuse. DC wednesday with [facility] - Attending Attestation Attending Attestation: DC tomorrow with C
[2018-03-25] MEDS: Rivaroxaban 10 MG Tablet PO SCH (09:25)
[2018-03-25] MEDS: Ferrous Sulfate Drops 15 MG/ML 50 ML Bottle PO SCH (10:51)
[2018-03-25] MEDS ORDERED: Sodium Chlor 0.9% Inj 250 ML IV.SIG SCH (12:00)
--- NOTE | 2018-03-25 15:02 | P.PNIM ---
Subjective Interval history: Follow up: post op hypotension Patient reports feeling well overall Patient had positive orthostatic vital signs - denies feeling lightheaded or dizzy with sitting or standing hgb 8.0- patient denies signs of active bleeding Physical Exam Vital signs: Vital Signs 03/24/18 16:00 03/24/18 20:00 03/25/18 00:00 Temperature 98.2 F 98.0 F 98.4 F Pulse Rate 78 83 90 Respiratory Rate 17 16 18 Blood Pressure 113/55 L 92/54 L 101/54 L Pulse Oximetry 98 96 94 L 03/25/18 01:34 03/25/18 04:00 03/25/18 08:00 Temperature 97.9 F 97.8 F Pulse Rate 80 74 Respiratory Rate 18 18 16 Blood Pressure 98/56 L 90/51 L Pulse Oximetry 94 L 96 03/25/18 11:49 Temperature 96.7 F L Pulse Rate Respiratory Rate 19 Blood Pressure 90/55 L Pulse Oximetry 96 Intake & Output 03/24/18 03/25/18 03/25/18 18:59 06:59 18:59 Intake Total 1400 / 1400 1100 / 1100 Output Total 220 / 220 350 / 350 Balance 1180 / 1180 750 / 750 Weight 79.1 kg 78.8 kg Intake: IV 1350 / 1350 1100 / 1100 NS Inj 1,000 ML @ 84 mls/hr IV. 1000 / 1000 1000 / 1000 CONT .[id number] AMOL Rx#:[id number] Ofirmev Inj 1,000 mg In 100 ml 100 / 100 100 / 100 @ 400 mls/hr IV.SIG Q12HR [facility]OL Rx#:[id number] Vancomycin Inj 1,000 MG In NS 250 / 250 Inj 250 ML @ 250 mls/hr IV.SIG SPECIAL EDUCATION [employer]INERANT TEACHER AMOL Rx#:[id number] Oral 50 / 50 Output: Urine 200 / 200 Urine Amount (Catheter) 350 / 350 250 350 / 350 Wound Drainage 20 / 20 # 1 Right Anterior Hip 20 / 20 Other: # Voids 1 Date of Last Bowel Movement 03/23/18 03/23/18 03/23/18 Narrative: GENERAL: This is a thin, well-developed patient 77 year old male patient, in no apparent distress. CARDIOVASCULAR: Regular rate and rhythm RESPIRATORY: Clear to auscultation. Breath sounds equal bilaterally. GASTROINTESTINAL: Abdomen soft, non-tender, nondistended. Normal active bowel sounds. PEG tube in place MUSCULOSKELETAL: Extremities without clubbing, cyanosis, or edema. dressing dry and intact NEURO: Alert & Oriented x4 to person, place, time, situation. Moves all ext x4 - Urinary Catheter Management 250 Cath placed during this visit: no Results - Labs CBC & Chem 7: 03/25/18 04:24 03/25/18 04:24 Laboratory Results - last 24 hr 03/23/18 03/25/18 03/25/18 06:15 04:24 04:24 WBC 6.4 RBC 2.61 L Hgb 8.0 L Hct 23.9 L MCV 91.6 MCH 30.6 MCHC 33.4 RDW 13.2 Plt Count 90 L MPV 12.0 H Prelim Diff (Auto) Slide review pending Neut % (Auto) 75.4 H Lymph % (Auto) 9.7 [place] % (Auto) 14.3 H Eos % (Auto) 0.2 Baso % (Auto) 0.4 Neut # (Auto) 4.8 Lymph # (Auto) 0.6 L [place] # (Auto) 0.9 Eos # (Auto) 0.0 Baso # (Auto) 0.0 WBC Differential . Diff Scan Auto diff confirmed Differential Comment . Platelet Estimate Low L Platelet Morphology Normal Sodium 142 Potassium 3.8 Chloride 110 H Carbon Dioxide 26.5 Anion Gap 6 BUN 13 Creatinine 0.56 L Estimated GFR Greater than 89 Random Glucose 114 H Calcium 7.7 L Blood Type Antibody Screen MTS Gel Crossmatch See Detail 03/25/18 12:21 WBC RBC Hgb Hct MCV MCH MCHC RDW Plt Count MPV Prelim Diff (Auto) Neut % (Auto) Lymph % (Auto) [place] % (Auto) Eos % (Auto) Baso % (Auto) Neut # (Auto) Lymph # (Auto) [place] # (Auto) Eos # (Auto) Baso # (Auto) WBC Differential Diff Scan Differential Comment Platelet Estimate Platelet Morphology Sodium Potassium Chloride Carbon Dioxide Anion Gap BUN Creatinine Estimated GFR Random Glucose Calcium Blood Type A Positive Antibody Screen Negative MTS Gel Crossmatch See Detail Assessment and Plan - Plan This is a 77-year-old male patient with past medical history which includes tongue cancer (feeding via PEG tube), hyperlipidemia and hypothyroidism. Patient is status post right total hip with Dr. Abreu 03/23/2018. We have been consulted to assist in medical management. Patient endorses moderate right postop hip pain. Patient has also had hypotension postoperatively. Patient reports feeling well, was able to ambulate in the liu. Patient denies feeling lightheaded/dizzy. Patient offers no other medical complaints at this time denies nausea vomiting diarrhea constipation shortness of breath or chest pain. OA right hip S/P R total hip with Dr. Willard Post op management per orthopedic surgery Hypotension Possibly from spinal anesthesia/blood loss Hgb 8.4 10/ Hgb 8.0 patient now with positive orthostatic hypotension 2 units PRBCs ordered recheck CBC in AM continue IV fluids NS at 84ml/H New onset Atrial Fibrillation with RVR start continuous telemetry Stat EKG reviewed and reveals: A Fib RVR BP low Dig 0.5 mg IV x1 now then .25 mg in 6 hours Dig level in AM Echocardiogram ordered Tongue cancer (feeding via PEG tube), Continue home tube feeding Hypothyroidism continue home levothyroxine DVT prophylaxis per orthopedic surgery
[2018-03-25] MEDS ORDERED: Digoxin Inj 500 MCG/2 ML Ampul IV.PUSH ONE (16:00)
[2018-03-25] MEDS: ALPRAZolam 0.25 MG Tablet PO SCH (20:30)
[2018-03-26] MEDS ORDERED: Digoxin Inj 500 MCG/2 ML Ampul IV.PUSH ONE (00:10)
--- NOTE | 2018-03-26 06:59 | P.PNOP ---
Subjective Interval history: No complaints at all. He is in bed. He is awake. He is comfortable. Dressings on right hip are intact and dry. No unusual swelling or hematoma noted to clinical examination around the right hip. He moves his toes well. Physical Exam Vital signs: Vital Signs 03/25/18 08:00 03/25/18 11:49 03/25/18 15:11 Temperature 97.8 F 96.7 F L 97.5 F L Pulse Rate 74 130 H Respiratory Rate 16 19 16 Blood Pressure 90/51 L 90/55 L 105/61 Pulse Oximetry 96 96 03/25/18 15:15 03/25/18 17:45 03/25/18 18:00 Temperature 98.4 F 97.7 F 97.8 F Pulse Rate 136 H 103 H 117 H Respiratory Rate 16 16 Blood Pressure 97/55 L 99/57 L 100/70 Pulse Oximetry 03/25/18 18:07 03/25/18 20:00 03/25/18 22:30 Temperature 97.8 F 98.1 F Pulse Rate 103 H 115 H Respiratory Rate 18 18 17 Blood Pressure 99/57 L 117/57 L Pulse Oximetry 93 L 03/26/18 00:00 03/26/18 00:22 03/26/18 00:29 Temperature 97.1 F L Pulse Rate 94 H 86 Respiratory Rate 18 18 18 Blood Pressure 113/5 L 105/55 L 117/59 L Pulse Oximetry 93 L 93 L 94 L 03/26/18 04:00 Temperature 97.7 F Pulse Rate 92 H Respiratory Rate 17 Blood Pressure 101/57 L Pulse Oximetry 93 L Intake & Output 03/25/18 03/25/18 03/26/18 06:59 18:59 06:59 Intake Total 1100 / 1100 400 / 400 400 / 400 Output Total 350 / 350 450 / 450 350 / 350 Balance 750 / 750 -50 / -50 50 / 50 Weight 78.8 kg 78.7 kg Intake: IV 1100 / 1100 NS Inj 1,000 ML @ 84 mls/hr IV. 1000 / 1000 CONT .[id number] AMOL Rx#:[id number] Ofirmev Inj 1,000 mg In 100 ml 100 / 100 @ 400 mls/hr IV.SIG Q12HR AMOL Rx#:[id number] Intake (Blood Product) Amt 400 / 400 400 / 400 Rbc As-3 Leukoreduced Unit 400 / 400 [id number] Rbc As-3 Leukoreduced Unit 0 / 0 400 / 400 [id number] Output: Urine 450 / 450 350 / 350 Urine Amount (Catheter) 350 / 350 250 350 / 350 Other: Date of Last Bowel Movement 03/23/18 03/23/18 03/23/18 # Bowel Movements 1 Narrative: As above. - Urinary Catheter Management 250 Cath placed during this visit: no Results - Labs CBC & Chem 7: 03/25/18 04:24 03/25/18 04:24 Laboratory Results - last 24 hr 03/23/18 03/25/18 03/25/18 06:15 04:24 12:21 WBC Differential . Diff Scan Auto diff confirmed Platelet Estimate Low L Platelet Morphology Normal Digoxin Blood Type A Positive Antibody Screen Negative MTS Gel Crossmatch See Detail See Detail 03/26/18 05:06 WBC Differential Diff Scan Platelet Estimate Platelet Morphology Digoxin 1.7 Blood Type Antibody Screen MTS Gel Crossmatch Assessment and Plan - Assessment and Plan Hypotension due to spinal and some blood loss. Hb Hct today OK. No need to transfuse. DC wednesday with [facility] - Attending Attestation Attending Attestation: Anemia of blood loss, received 2 units of packed cells yesterday. Today his labs have not come back. New onset atrial fibrillation being managed by medical. Patient will be sent home with home health care only when he is medically cleared. His platelets are down to 90,000 but we will continue Xarelto 10 mg daily. I would be very hesitant to escalate his anticoagulation because of new onset atrial fib, being that he is only 72 hours postop and also has borderline low platelets. Hopefully his condition will stabilize for me to discharge him tomorrow morning
[2018-03-26] MEDS: Ferrous Sulfate Drops 15 MG/ML 50 ML Bottle PO SCH (08:44)
[2018-03-26] MEDS: Sod Chloride 0.9% Inj 1,000 ML IV.CONT SCH ×2 (08:48→15:52)
[2018-03-26] MEDS: Senna/Docusate Sodium 8.6/50 MG Tablet PO SCH ×2 (08:48→20:10)
[2018-03-26] MEDS: Rivaroxaban 10 MG Tablet PO SCH (09:09)
[2018-03-26 11:51] LABS: Baso % (Auto) 0.4 % (0.0-2.0); Eos # (Auto) 0.1 th/mm3 (0.0-0.4); Eos % (Auto) 2.4 % (0.0-4.0); Hematocrit 29.9 % (39.0-51.0); Hemoglobin 10.4 gm/dL (13.0-17.0); Lymph % (Auto) 18.9 % (9.0-44.0); Mean Corpuscular HGB Conc 34.9 % (32.0-36.0); Mean Corpuscular Hemoglobin 30.7 pg (27.0-34.0); Mean Corpuscular Volume 88.2 fL (80.0-100.0); Mono # (Auto) 0.7 th/mm3 (0.0-0.9); Mono % (Auto) 12.7 % (0.0-8.0); Neut # (Auto) 3.5 th/mm3 (1.8-7.7); Neut % (Auto) 65.6 % (16.0-70.0); Platelet Count 105 th/mm3 (150-450); Red Blood Count 3.39 mil/mm3 (4.50-5.90); Red Cell Distribution Width 13.9 % (11.6-17.2); White Blood Count 5.3 th/mm3 (4.0-11.0)
--- NOTE | 2018-03-26 13:06 | ECHRPT ---
Indication: Paroxysmal atrial fibrillation CONCLUSIONS The left ventricular systolic function is normal with an estimated ejection fraction in the range of 55-60%. Wall thickness is normal. Normal left ventricular size. There is trace tricuspid valve regurgitation. The estimated pulmonary arterial pressure is 26.6 mmHg. BP: / HR: Rhythm: Sinus MEASUREMENTS (Male / Female) Normal Values Technical Quality:Technically difficult study 2D ECHO LV Diastolic Diameter PLAX 4.3 cm 4.2 - 5.9 / 3.9 - 5.3 cm LV Systolic Diameter PLAX 3.3 cm IVS Diastolic Thickness 0.8 cm 0.6 - 1.0 / 0.6 - 0.9 cm LVPW Diastolic Thickness 0.9 cm 0.6 - 1.0 / 0.6 - 0.9 cm LV Relative Wall Thickness 0.4 LVOT Diameter 2.0 cm M-MODE Aortic Root Diameter MM 2.3 cm LA Systolic Diameter MM 4.0 cm LA Ao Ratio MM 1.7 AV Cusp Separation MM 1.7 cm DOPPLER AV Peak Velocity 129.0 cm/s AV Peak Gradient 6.7 mmHg LVOT Peak Velocity 98.2 cm/s LVOT Peak Gradient 3.9 mmHg AV Area Cont Eq pk 2.4 cm Mitral E Point Velocity 73.5 cm/s Mitral A Point Velocity 74.5 cm/s Mitral E to A Ratio 1.0 LV E' Lateral Velocity 8.8 cm/s Mitral E to LV E' Lateral Ratio 8.4 LV E' Septal Velocity 4.9 cm/s Mitral E to LV E' Septal Ratio 15.1 TR Peak Velocity 204.0 cm/s TR Peak Gradient 16.6 mmHg Right Atrial Pressure 10.0 mmHg Pulmonary Artery Systolic Pressu 26.6 mmHg Right Ventricular Systolic Press 26.6 mmHg PV Peak Velocity 105.0 cm/s PV Peak Gradient 4.4 mmHg FINDINGS LEFT VENTRICLE The left ventricular systolic function is normal with an estimated ejection fraction in the range of 55-60%. Wall thickness is normal. Normal left ventricular size. RIGHT VENTRICLE Normal right ventricular size and systolic function. LEFT ATRIUM The left atrial size is normal. RIGHT ATRIUM The right atrial size is normal. ATRIAL SEPTUM Normal atrial septal thickness without atrial level shunting by limited color doppler interrogation. AORTA The aortic root and proximal ascending aorta are normal in size on limited imaging. MITRAL VALVE Structurally normal mitral valve. No mitral valve stenosis or regurgitation. AORTIC VALVE Trileaflet aortic valve. No aortic valve stenosis or regurgitation. TRICUSPID VALVE There is trace tricuspid valve regurgitation. The estimated pulmonary arterial pressure is 26.6 mmHg. PULMONARY VALVE No pulmonary valve regurgitation or stenosis. VESSELS The inferior vena cava is normal in size. PERICARDIUM No pericardial effusion. Kelly Hernandez MD, FACC (Electronically Signed) Final Date:26 March 2018 13:05
[2018-03-26] MEDS: Digoxin 125 MCG Tablet PO SCH (14:11)
--- NOTE | 2018-03-26 14:59 | P.PNIM ---
Subjective Interval history: Follow up: post op hypotension and A fib RVR Patient reports feeling better today than yesterday offers no new concerns/complaints Physical Exam Vital signs: Vital Signs 03/25/18 15:11 03/25/18 15:15 03/25/18 17:45 Temperature 97.5 F L 98.4 F 97.7 F Pulse Rate 130 H 136 H 103 H Respiratory Rate 16 16 Blood Pressure 105/61 97/55 L 99/57 L Pulse Oximetry 03/25/18 18:00 03/25/18 18:07 03/25/18 20:00 Temperature 97.8 F 97.8 F 98.1 F Pulse Rate 117 H 103 H 115 H Respiratory Rate 16 18 18 Blood Pressure 100/70 99/57 L 117/57 L Pulse Oximetry 93 L 03/25/18 22:30 03/26/18 00:00 03/26/18 00:22 Temperature 97.1 F L Pulse Rate 94 H 86 Respiratory Rate 17 18 18 Blood Pressure 113/5 L 105/55 L Pulse Oximetry 93 L 93 L 03/26/18 00:29 03/26/18 04:00 03/26/18 08:00 Temperature 97.7 F 98.8 F Pulse Rate 92 H 91 H Respiratory Rate 18 17 16 Blood Pressure 117/59 L 101/57 L 125/59 L Pulse Oximetry 94 L 93 L 92 L 03/26/18 12:00 Temperature 98.3 F Pulse Rate 88 Respiratory Rate 18 Blood Pressure 109/58 L Pulse Oximetry 98 Intake & Output 03/25/18 03/26/18 03/26/18 18:59 06:59 18:59 Intake Total 400 / 400 400 / 400 Output Total 450 / 450 350 / 350 Balance -50 / -50 50 / 50 Weight 78.7 kg Intake: Intake (Blood Product) Amt 400 / 400 400 / 400 Rbc As-3 Leukoreduced Unit 400 / 400 [id number] Rbc As-3 Leukoreduced Unit 0 / 0 400 / 400 [id number] Output: Urine 450 / 450 350 / 350 Other: Date of Last Bowel Movement 03/23/18 03/23/18 03/25/18 # Bowel Movements 1 Narrative: GENERAL: This is a thin, well-developed patient 77 year old male patient, in no apparent distress. CARDIOVASCULAR: RESPIRATORY: Clear to auscultation. Breath sounds equal bilaterally. GASTROINTESTINAL: Abdomen soft, non-tender, nondistended. Normal active bowel sounds. PEG tube in place MUSCULOSKELETAL: Extremities without clubbing, cyanosis, or edema. dressing dry and intact NEURO: Alert & Oriented x4 to person, place, time, situation. Moves all ext x4 - Urinary Catheter Management 250 Cath placed during this visit: no Results - Labs CBC & Chem 7: 03/26/18 11:23 03/25/18 04:24 Laboratory Results - last 24 hr 03/25/18 03/26/18 03/26/18 12:21 05:06 11:23 WBC 5.3 RBC 3.39 L Hgb 10.4 L D Hct 29.9 L MCV 88.2 MCH 30.7 MCHC 34.9 RDW 13.9 Plt Count 105 L MPV 11.0 Neut % (Auto) 65.6 Lymph % (Auto) 18.9 [place] % (Auto) 12.7 H Eos % (Auto) 2.4 Baso % (Auto) 0.4 Neut # (Auto) 3.5 Lymph # (Auto) 1.0 [place] # (Auto) 0.7 Eos # (Auto) 0.1 Baso # (Auto) 0.0 WBC Differential . Differential Comment Auto diff final Digoxin 1.7 Blood Type A Positive Antibody Screen Negative MTS Gel Crossmatch See Detail Assessment and Plan - Plan This is a 77-year-old male patient with past medical history which includes tongue cancer (feeding via PEG tube), hyperlipidemia and hypothyroidism. Patient is status post right total hip with Dr. Abreu 03/23/2018. We have been consulted to assist in medical management. Patient endorses moderate right postop hip pain. Patient has also had hypotension postoperatively. Patient reports feeling well, was able to ambulate in the liu. Patient denies feeling lightheaded/dizzy. Patient offers no other medical complaints at this time denies nausea vomiting diarrhea constipation shortness of breath or chest pain. OA right hip S/P R total hip with Dr. Willard Post op management per orthopedic surgery Hypotension Possibly from spinal anesthesia/blood loss 03/24 Hgb 8.4 03/24 03/25 Hgb 8.0 patient now with positive orthostatic hypotension 2 units PRBCs ordered 03/26 Hgb 10.4 DC IVF New onset Atrial Fibrillation with RVR 03/25 start continuous telemetry Stat EKG reviewed and reveals: A Fib RVR hypotension improving Dig 0.5 mg IV x1 now then 0.25 mg in 6 hours Dig level (03/26) 1.7 start digoxin 125 mcg daily Echocardiogram: The left ventricular systolic function is normal with an estimated ejection fraction in the range of 55-60%. Wall thickness is normal. Normal left ventricular size. There is trace tricuspid valve regurgitation. The estimated pulmonary arterial pressure is 26.6 mmHg. Patient currently on Xarelto 10 mg daily per orthopedic surgery. Orthopedic surgery does not want patient on further anticoagulation Will have patient follow up with cardiology after DC Tongue cancer (feeding via PEG tube), Continue home tube feeding Hypothyroidism continue home levothyroxine DVT prophylaxis per orthopedic surgery Patient medically stable for DC - recommend digoxin 125 mcg daily and outpatient follow up with cardiology in 1-2 weeks after DC - Attending Attestation The exam, history, and the medical decision-making described in the above note were completed with the assistance of the mid-level provider. I reviewed and agree with the findings presented. I attest that I had a [id number] encounter with the patient on the same day, and personally performed and documented my assessment and findings in the medical record. Patient examined. Assessment and plan formulated with Justyna Schaffer PA-C. I agree with the above. [facility] Prescription Drug Monitoring Database has been queried and verified prior to prescribing the controlled substance. Acute pain exception. This patient has normal, predicted, physiological, and time limited response to an adverse mechanical stimulus associated with surgery, trauma, or acute illness as described in my notes. There is a lack of alternative treatment options other than to include the prescribed narcotic treatment for this condition.
--- NOTE | 2018-03-26 16:41 | P.DCO ---
- Diagnosis (1) A-fib Status: Acute (2) History of total right hip arthroplasty Status: Acute - Physical Therapy Order: Evaluate and treat Instructions: Right hip arthroplasty with Dr. Abreu 03/23/18 - Home Health Nursing Order: Medical education, Signs/symptoms of disease process, Medication education-adverse effect, Nursing assessment with vital signs - Case Management Consult Yes - Certification I have seen patient Ricardo Heller on 03/26/18. My clinical findings support the need for the requested home health care services because: Limited mobility due to disease progression, Deconditioned with increased weakness, High risk of falls I certify that my clinical findings support that this patient is homebound because: Post-op weakness, Unsteady gait/balance
[2018-03-26] MEDS: ALPRAZolam 0.25 MG Tablet PO SCH (20:10)
--- NOTE | 2018-03-27 00:34 | ECG ---
Date Performed: 03/25/2018 Time Performed: 17:36:52 PTAGE: 77 years EKG: ATRIAL FIBRILLATION WITH RAPID VENTRICULAR RESPONSE NONSPECIFIC ST & T-WAVE ABNORMALITY ABN ORMAL RHYTHM ECG PREVIOUS TRACING : 03/25/2018 15.28 DOCTOR: Jack Corado Interpretating Date/Time 03/27/2018 00:33:28
--- NOTE | 2018-03-27 00:38 | ECG ---
Date Performed: 03/25/2018 Time Performed: 15:28:19 PTAGE: 77 years EKG: ATRIAL FIBRILLATION WITH RAPID VENTRICULAR RESPONSE INFERIOR MYOCARDIAL INFARCTION , OF IND ETERMINATE AGE ABNORMAL ECG PREVIOUS TRACING : 03/14/2018 08.33 DOCTOR: Jack Corado Interpretating Date/Time 03/27/2018 00:37:32
[2018-03-27] MEDS: Levothyroxine 100 MCG Tablet PO SCH (06:37)
[2018-03-27] MEDS: Digoxin 125 MCG Tablet PO SCH (09:25)
[2018-03-27] MEDS: Senna/Docusate Sodium 8.6/50 MG Tablet PO SCH (09:25)
[2018-03-27] MEDS: Rivaroxaban 10 MG Tablet PO SCH (09:25)
--- NOTE | 2018-03-27 11:00 | P.PNOP ---
Subjective Interval history: ready to go home Physical Exam Vital signs: Vital Signs 03/26/18 12:00 03/26/18 16:00 03/26/18 20:00 Temperature 98.3 F 97.9 F 97.3 F L Pulse Rate 88 90 86 Respiratory Rate 18 18 18 Blood Pressure 109/58 L 112/61 102/55 L Pulse Oximetry 98 98 95 03/27/18 00:00 03/27/18 04:00 03/27/18 08:00 Temperature 97.3 F L 97.4 F L 97.9 F Pulse Rate 76 78 74 Respiratory Rate 17 17 22 Blood Pressure 104/61 121/58 L 115/58 L Pulse Oximetry 98 95 96 Intake & Output 03/26/18 03/27/18 03/27/18 18:59 06:59 18:59 Output Total 450 / 450 Balance -450 / -450 Weight 78 kg Output: Urine 450 / 450 Other: Date of Last Bowel Movement 03/25/18 03/26/18 Narrative: sitting OOB, comfortable. Dressings dry. - Urinary Catheter Management 250 Cath placed during this visit: no Results - Labs CBC & Chem 7: 03/26/18 11:23 03/25/18 04:24 Laboratory Results - last 24 hr 03/26/18 11:23 WBC 5.3 RBC 3.39 L Hgb 10.4 L D Hct 29.9 L MCV 88.2 MCH 30.7 MCHC 34.9 RDW 13.9 Plt Count 105 L MPV 11.0 Neut % (Auto) 65.6 Lymph % (Auto) 18.9 [place] % (Auto) 12.7 H Eos % (Auto) 2.4 Baso % (Auto) 0.4 Neut # (Auto) 3.5 Lymph # (Auto) 1.0 [place] # (Auto) 0.7 Eos # (Auto) 0.1 Baso # (Auto) 0.0 WBC Differential . Differential Comment Auto diff final Assessment and Plan - Ortho Post Op Day # 4 - Assessment and Plan Hypotension due to spinal and some blood loss. Hb Hct today OK. No need to transfuse. DC wednesday with [facility] - Attending Attestation Attending Attestation: DC plan and Rxs as outlined by hospitalist Going home on tramadol, tamsulosin, iron, xarelto, and digoxin. All Rxs written by Dr. Uribe. To see me thursday for dressing change
[2018-03-27 12:49] VITALS: BP 133/68; PULSE 88; RESP 20; TEMP 97.8; O2SAT 97
--- NOTE | 2018-03-27 19:09 | MD ---
cc: Stone Abreu MD DATE OF DISCHARGE: 03/27/2018 ADMISSION DIAGNOSES: 1. End-stage osteoarthritis, right hip. 2. Status post surgery and radiation for carcinoma of the tongue. 3. Severe kyphosis of thoracic spine and cervical spondylosis. 4. Presence of a gastrostomy/feeding tube. POSTOPERATIVE DIAGNOSES: 1. End-stage osteoarthritis, right hip. 2. Status post surgery and radiation for carcinoma of the tongue. 3. Severe kyphosis of thoracic spine and cervical spondylosis. 4. Presence of a gastrostomy/feeding tube. 5. Anemia of blood loss. 6. Early new onset atrial fibrillation. HISTORY: History consisted of a longstanding problem of the right hip, which was treated nonoperatively, particularly given the other morbidities she has. The patient came to the point where he could do activities of daily living in spite of intraarticular injections, etc. HOSPITAL COURSE: After proper preoperative workup, he was admitted to the hospital, and underwent a total hip replacement arthroplasty, right hip through anterior approach, and spinal anesthetic. Postoperative course was essentially uneventful, from an orthopedic standpoint. Serial blood count did show diminution of hemoglobin, hematocrit, and some orthostatic hypotension prompting the medical service to transfuse him 2 units of packed cells. Those problems resolved. He did develop atrial fibrillation for which he will have followup with deicer finisher. We are leaving him on Xarelto 10 mg daily, which is a deep venous thrombosis prophylaxis regimen, but will also help with the atrial fibrillation. He was prescribed tramadol 50 mg t.i.d. p.o. every 6 hours p.r.n. for pain, number 50. He is also prescribed Digoxin 125 mcg daily, ferrous sulfate liquid drops once a day, and tamsulosin 0.5 mg daily. The patient was discharged with home health care. He will see me in the office on 03/31/2017 for followup. Postoperative x-ray satisfactory. DISCHARGE CONDITION: Stable. The patient is improved. MD ADALID Robins/kandy , 10:56 AM , 11:03 AM
== END 2018-03-27 13:00 | disposition home or self-care (01) ==
LOC: HSDC 05:30 → HSDI 06:06 → EDSTATUS 07:30 → N06 20:50
PROVIDERS: ADMIT Orthopaedic Surgery; ATTEND Orthopaedic Surgery